=== PATIENT | female | born 1955 | race Caucasian/White ===

== ENCOUNTER 2020-03-16 11:36 | Day surgery (SDC) | payer MEDICARE, OTHER ==
[2020-03-16] MEDS ORDERED: LACTATED RINGERS 1,000 ML IV ONE ×2 (11:45→14:00)
--- NOTE | 2020-03-16 12:17 | ANESTHESIA ---
Pre-Anesthesia VS, & Labs - Diagnosis Hx anal CA w/bowel change in pattern, anal fissure - Procedure colonoscopy w/Biopsy Height 5 ft 3 in Body Mass Index 22.8 - NPO >8 hours - Is Patient ?: No - Lab Results Lab results reviewed: Yes Home Medications and Allergies Home Medications: Ambulatory Orders Atorvastatin Calcium 40 mg PO QPM 03/15/20 Lisinopril [Zestril] 2.5 mg PO DAILY PM 03/15/20 Metformin HCl [Glucophage Xr] 750 mg PO DAILY PM 03/15/20 Atorvastatin Calcium 40 mg PO QPM 03/15/20 Lisinopril [Zestril] 2.5 mg PO DAILY PM 03/15/20 Metformin HCl [Glucophage Xr] 750 mg PO DAILY PM 03/15/20 Allergies/Adverse Reactions: Allergies Allergy/AdvReac Type Severity Reaction Status Date / Time No Known Drug Allergies Allergy Verified 03/15/20 14:29 Anes History & Medical History - Anesthetic History Anesthesia Complications: reports: No previous complications Family history of Anesthesia Complications: Denies Family history of Malignant Hyperthermia: Denies - Medical History Cardiovascular: reports: High cholesterol Endocrine/Autoimmune: reports: Type 2 diabetes - Surgical History General: Cholecystectomy Exam General: Alert, Oriented x3 Dental: WNL Mouth Openin Fingerbreadth Neck Mobility: Normal Mallampati classification: II Thyromental Distance: 4-6 cm Respiratory: Lungs clear, Normal breath sounds Cardiovascular: Regular rate Neurological: Normal speech Mental/Cognitive Status: Alert/Oriented X3, Normal for patient Cognitive Status: Within normal limits Plan Anesthesia Type: MAC Consent for Procedure(s) Verified and Reviewed: Yes Code Status: Attempt Resuscitation ASA classification: 3-Severe systemic disease Is this case an emergency?: No
[2020-03-16] MEDS ORDERED: HYDROmorphone 0.5 MG/0.5 ML SYRINGE IVP PRN (12:20)
[2020-03-16] MEDS ORDERED: ePHEDrine 50 MG/ML VIAL IVP PRN (12:20)
[2020-03-16] MEDS ORDERED: METOCLOPRAMIDE 10 MG/2 ML VIAL IVP PRN (12:20)
[2020-03-16] MEDS ORDERED: ONDANSETRON 4 MG/2 ML VIAL IVP PRN (12:20)
[2020-03-16] MEDS ORDERED: NALOXONE 0.4 MG/ML VIAL IVP PRN (12:20)
[2020-03-16] MEDS ORDERED: MORPHINE 2 MG/ML CARPUJECT IVP PRN (12:20)
[2020-03-16] MEDS ORDERED: ATROPINE ABBOJECT 1 MG/10 ML SYRINGE IVP PRN (12:20)
[2020-03-16] MEDS ORDERED: fentaNYL 100 MCG/2 ML VIAL IVP PRN (12:20)
[2020-03-16] MEDS ORDERED: MIDAZOLAM 2 MG/2 ML VIAL IVP ONE (12:47)
[2020-03-16] MEDS ORDERED: LIDOCAINE-MPF 2% 5 ML VIAL IM ONE (12:47)
[2020-03-16] MEDS ORDERED: PROPOFOL 200 MG/20 ML VIAL IVP ONE (12:47)
[2020-03-16] MEDS ORDERED: KETAMINE 500 MG/10 ML VIAL IVP ONE (12:47)
[2020-03-16] MEDS ORDERED: LACTATED RINGERS 1,000 ML IV SCH (13:00)
[2020-03-16] MEDS ORDERED: BUPIVACAINE 0.25% PF 30 ML VIAL ONE ×3 (13:33→13:36)
[2020-03-16] MEDS ORDERED: BUPIVACAINE 0.25% PF 30 ML VIAL SUBQ ONE (13:45)
--- NOTE | 2020-03-16 14:12 | ANESTHESIA POST OP EVALUATION ---
Anesthesia Post Eval - Post Anesthesia Eval Vitals: Last Vital Signs Temp 36.4 C L 03/16/20 14:00 Pulse 71 03/16/20 14:10 Resp 16 03/16/20 14:10 BP 156/70 H 03/16/20 14:10 Pulse Ox 100 03/16/20 14:10 CV Function Including HR & BP: positive: Stable Pain Control: positive: Satisfactory Nausea & Vomiting: positive: Negative Mental Status: positive: Baseline Respiratory Status: Airway Patent Hydration Status: Satisfactory Anesthesia Complications: positive: None
[2020-03-16 14:32] VITALS: BP 152/78
--- NOTE | 2020-03-16 14:53 | OPERATIVE REPORT ---
Operative Report - General Procedure Date: 03/17/20 Planned Procedure: 1. Intraoperative colonoscopy 2. Exam under anesthesia 3. Random biopsies Pre-Op Diagnosis: Anal cancer, levator spasm, recurrent fissures, change in bowel movements Procedure Performed: 1. Intraoperative colonoscopy 2. Exam under anesthesia 3. Anorectal exam 4. Random biopsies intra-anal 5. Random biopsies, colon 6. Perianal biopsies Post Op Diagnosis: Same, no evidence of recurrence, no ileitis, tortuous colon - Procedure Note Primary Surgeon: Izabella Secondary Surgeon: Corinne Anesthesia Technique: Local, MAC Pathology: 1. Random colon biopsies 2. Anterior anal biopsy, intra-anal 3. Posterior anal biopsy, intra-anal 4. Left lateral intrarenal biopsy 5. Right lateral intrarenal biopsy 6. Left posterior lateral anal biopsy Drain/Tube Type: Other (Packing, anal, Gelfoam and Surgicel) Indications: Preoperative history and physical from Dr. Hannah Sun. In brief 64-year-old female 4 to 5 months status post chemoradiation for anal cancer reportedly stage I found on colonoscopy. Patient was initially noted for area of concern associated with anal fissure. Left lateral anal fissure by report. Recurrent fissures with discomfort and change in bowel movements. Although surveillance imaging without any concerns other than area within the sacrum, patient was recommended for anorectal/colorectal follow-up. Findings: 1. No terminal ileitis 2. Colonic diverticulosis favoring the left side 3. Sigmoid stricture, likely diverticular 4. Exceedingly/grossly tortuous colon 5. No obvious recurrence of anal cancer however random biopsies performed 6. 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
== END 2020-03-16 11:37 | disposition home or self-care (01) ==
LOC: SDS 11:36
PROVIDERS: ATTEND Surgery
PROC: 0DBE8ZX Excision of Large Intestine, Via Natural or Artificial Opening Endoscopic, Diagnostic (ICD-10-PCS; 2020-03-16)
PROC: 0DBN8ZX Excision of Sigmoid Colon, Via Natural or Artificial Opening Endoscopic, Diagnostic (ICD-10-PCS; principal; 2020-03-16 14:45)
DX: R19.4 Change in bowel habit (principal); K62.89 Other specified diseases of anus and rectum; Z85.048 Personal history of other malignant neoplasm of rectum, rectosigmoid junction, and anus; Z92.21 Personal history of antineoplastic chemotherapy; K60.2 Anal fissure, unspecified; K57.30 Diverticulosis of large intestine without perforation or abscess without bleeding; K64.8 Other hemorrhoids; Z92.3 Personal history of irradiation; K62.4 Stenosis of anus and rectum; E11.9 Type 2 diabetes mellitus without complications
CPT/HCPCS: 45380; J7120

== ENCOUNTER 2020-12-19 18:00 | Outpatient (CLI) | payer MEDICARE, OTHER ==
--- NOTE | 2020-12-19 18:35 | XRAY Report ---
PROCEDURE: Abdomen 1 View X-Ray INDICATIONS: CONSTIPATION TECHNIQUE: 1 view of the abdomen were acquired. COMPARISON: None. FINDINGS: Surgical changes and devices: Cholecystectomy clips. Bowel: No pneumoperitoneum. No dilated loops of bowel seen. Somewhat prominent fecal residue. Soft tissues: No masses; visualized solid organ contours appear normal in size. No suspicious abdom inal calcifications. Bones: No suspicious bony abnormalities. IMPRESSION: No dilated loops of bowel seen. Somewhat prominent fecal residue. Reviewed by: Loyd Mccray MD on 12/19/2020 6:33 PM PDT Approved by: Loyd Mccray MD on 12/19/2020 6:33 PM PDT Station ID: [id number]
== END 2020-12-19 23:59 | disposition home or self-care (01) ==
LOC: DI.N 18:00
PROVIDERS: ATTEND Physician Assistant Medical
DX: K59.00 Constipation, unspecified (principal)

== ENCOUNTER 2021-04-12 10:44 | Outpatient (CLI) | payer MEDICARE, OTHER ==
--- NOTE | 2021-04-13 08:41 | Mammography Report ---
BILATERAL DIGITAL SCREENING MAMMOGRAM 3D/2D: 04/12/2021 CLINICAL: Routine screening. Comparison is made to exams dated: 12/01/2019 mammogram, 11/27/2018 mammogram, 09/23/2017 ultrasound, 04/2018 mammogram - [facility], and 09/06/2015 mammogram - [facility]. The re are scattered fibroglandular elements in both breasts. No significant masses, calcifications, or other findings are seen in either breast. There has been no significant interval change. IMPRESSION: NEGATIVE There is no mammographic evidence of malignancy. A 1 year screening mammogram is recommended. This exam was interpreted at Station ID: [id number]. NOTE: For mammograms, a report in lay terms will be sent to the patient. Approximately 15% of breast malignancies will not be visualized mammographically. In the management of a palpable breast mass, a negative mammogram must not discourage biopsy of a clinically suspicious lesion. Electronically Signed By: Srinivasa Serrano M.D. aty/[email or web address]:04/12/2021 12:36:18 ACR BI-RADS Category 1: Negative 3341F PARENCHYMAL PATTERN: (A) - The breast(s) demonstrate(s) scattered fibroglandular densities. BI-RADS CATEGORY: (1) - 1 RECOMMENDATION: (ANNUAL) - Recommend routine annual screening mammography. [id number] 1 year screening LATERALITY: (B)
== END 2021-04-12 10:45 | disposition home or self-care (01) ==
LOC: DI 10:44
DX: Z12.31 Encounter for screening mammogram for malignant neoplasm of breast (principal)

== ENCOUNTER 2022-04-15 10:22 | Outpatient (CLI) | payer MEDICARE, OTHER ==
--- NOTE | 2022-04-16 11:30 | Mammography Report ---
BILATERAL DIGITAL SCREENING MAMMOGRAM 3D/2D: 04/15/2022 CLINICAL: Routine screening. Comparison is made to exams dated: 04/12/2021 mammogram - [facility], 12/01/2019 lori mogram, 11/27/2018 mammogram, 09/23/2017 ultrasound, 08/30/2017 mammogram - [facility], and 09/06/2015 mammogram - [facility]. There are scattered areas of fibroglandular density in both breasts (category b / 25%-50% glandular t issue). No significant masses, calcifications, or other findings are seen in either breast. There has been no significant interval change. IMPRESSION: NEGATIVE There is no mammographic evidence of malignancy. A 1 year screening mammogram is recommended. Based on Tyrer-Cuzick model (a risk assessment model), the patient's lifetime risk is 23.5% and her 1 0 year risk is 13.7%. If a patient has an elevated risk, a more comprehensive evaluation should be co nsidered and/or a referral to a genetic counselor. The [place] [employer], [place] [employer], and NCCN Guidelines advise the consideration of Breast MRI as an adjunct to screening mammo graphy in patients whose "Lifetime risk to develop breast cancer" is 20% or higher. This exam was interpreted at Station ID: [id number]. NOTE: For mammograms, a report in lay terms will be sent to the patient. Approximately 15% of breast malignancies will not be visualized mammographically. In the management of a palpable breast mass, a negative mammogram must not discourage biopsy of a clinically suspicious lesion. Electronically Signed By: Jason Strauss M.D., jr/fauzia:04/15/2022 15:15:53 ACR BI-RADS Category 1: Negative 3341F PARENCHYMAL PATTERN: (A) - The breast(s) demonstrate(s) scattered fibroglandular densities. BI-RADS CATEGORY: (1) - 1 RECOMMENDATION: (ANNUAL) - Recommend routine annual screening mammography. [id number] 1 year screening LATERALITY: (B)
== END 2022-04-15 10:23 | disposition home or self-care (01) ==
LOC: DI.N 10:22
PROVIDERS: ATTEND Physician Assistant
DX: Z12.31 Encounter for screening mammogram for malignant neoplasm of breast (principal)

== ENCOUNTER 2023-01-22 08:26 | Outpatient (CLI) | payer MEDICARE, OTHER ==
[2023-01-22 12:06] LABS: BASOPHILS % (AUTO) 0.2 %; EOSINOPHILS # (AUTO) 0.2 10^3/uL (0.0-0.7); EOSINOPHILS % (AUTO) 4.3 %; HCT - HEMATOCRIT 41.2 % (37.0-47.0); HGB - HEMOGLOBIN 13.1 g/dL (12.0-16.0); LYMPHOCYTES # (AUTO) 1.3 10^3/uL (1.5-3.5); MEAN CORPUSCULAR HEMOGLOBIN 30.4 pg (27.0-31.0); MEAN CORPUSCULAR HGB CONC 31.8 g/dL (32.0-36.0); MEAN CORPUSCULAR VOLUME 95.6 fL (81.0-99.0); MEAN PLATELET VOLUME 9.7 fL (7.9-10.8); MONOCYTES # (AUTO) 0.3 10^3/uL (0.0-1.0); MONOCYTES % (AUTO) 7.2 %; NEUTROPHILS # (AUTO) 2.3 10^3/uL (1.5-6.6); NEUTROPHILS % (AUTO) 56.1 %; PLT - PLATELET COUNT 200 10^3/uL (130-450); RED BLOOD COUNT 4.31 10^6/uL (4.20-5.40); RED CELL DISTRIBUTION WIDTH 12.7 % (12.0-15.0); WHITE BLOOD COUNT 4.2 x10^3/uL (4.8-10.8)
[2023-01-22 12:31] LABS: ESTIMATED AVERAGE GLUCOSE 140 mg/dL (70-100); HEMOGLOBIN A1c% 6.5 % (4.27-6.07); THYROID STIMULATING HORMONE 2.36 uIU/mL (0.34-5.60)
[2023-01-22 12:43] LABS: ALBUMIN 4.1 g/dL (3.2-5.5); ALBUMIN/GLOBULIN RATIO 1.3 (1.0-2.2); ALKALINE PHOSPHATASE 67 IU/L (42-121); ALT ALANINE AMINOTRANSFERASE 23 IU/L (10-60); AST ASPARTATE AMINOTRANSFERASE 22 IU/L (10-42); BILIRUBIN,TOTAL 0.7 mg/dL (0.2-1.0); BUN - BLOOD UREA NITROGEN 14 mg/dL (6-20); CALCIUM 9.5 mg/dL (8.5-10.3); CARBON DIOXIDE - CO2 30 mmol/L (21-32); CHLORIDE 104 mmol/L (101-111); CHOLESTEROL 279 mg/dL; CREATININE 0.7 mg/dL (0.4-1.0); GFR - MDRD 83 (>89); GLUCOSE 131 mg/dL (70-100); HDL CHOLESTEROL 141 mg/dL; LDL CHOLESTEROL,CALCULATED 123 mg/dL; LDL/HDL RATIO 0.9 (<4.4); SODIUM 139 mmol/L (135-145); TOTAL PROTEIN 7.2 g/dL (6.7-8.2); TRIGLYCERIDES 76 mg/dL; VLDL CHOLESTEROL 15 mg/dL
[2023-01-22 20:57] LABS: CREATININE,URINE 46.6 mg/dL; MICROALBUM/CREATININE RATIO,UR 6.4 ug/mg (<30.0); MICROALBUMIN,URINE 0.3 mg/dL (0-300.0)
== END 2023-01-22 08:27 | disposition home or self-care (01) ==
LOC: LAB.N 08:26
PROVIDERS: ATTEND Physician Assistant
DX: I10 Essential (primary) hypertension (principal); E11.9 Type 2 diabetes mellitus without complications
CPT/HCPCS: 36415; 80053; 80061; 82043; 82570; 83036; 83721; 84443; 85025

== ENCOUNTER 2023-03-25 08:39 | Outpatient (CLI) | payer MEDICARE, OTHER ==
--- NOTE | 2023-03-26 09:28 | Mammography Report ---
BILATERAL DIGITAL SCREENING MAMMOGRAM 3D/2D: 03/25/2023 CLINICAL: Routine screening. Comparison is made to exams dated: 04/15/2022 mammogram, 04/12/2021 mammogram - [facility], 12/01/2019 mammogram, 11/27/2018 mammogram, 09/23/2017 ultrasound, and 08/30/2017 mammogram - [facility]. There are scattered areas of fibroglandular density in both breasts (category b / 25%-50% glandular t issue). There is a biopsy clip in the right breast. No significant masses, calcifications, or other findings are seen in either breast. There has been no significant interval change. IMPRESSION: NEGATIVE There is no mammographic evidence of malignancy. A 1 year screening mammogram is recommended. Based on Tyrer-Cuzick model (a risk assessment model), the patient's lifetime risk is 22.5% and her 1 0 year risk is 13.9%. If a patient has an elevated risk, a more comprehensive evaluation should be co nsidered and/or a referral to a genetic counselor. The [place] [employer], [place] [employer], and NCCN Guidelines advise the consideration of Breast MRI as an adjunct to screening mammo graphy in patients whose "Lifetime risk to develop breast cancer" is 20% or higher. This exam was interpreted at Station ID: [id number]. NOTE: For mammograms, a report in lay terms will be sent to the patient. Approximately 15% of breast malignancies will not be visualized mammographically. In the management of a palpable breast mass, a negative mammogram must not discourage biopsy of a clinically suspicious lesion. Electronically Signed By: Jessi delaney/fauzia:03/25/2023 11:50:07 letter sent: No_Letter ACR BI-RADS Category 1: Negative 3341F PARENCHYMAL PATTERN: (A) - The breast(s) demonstrate(s) scattered fibroglandular densities. BI-RADS CATEGORY: (1) - 1 Mammogram [id number] 1 year screening LATERALITY: (B)
== END 2023-03-25 08:40 | disposition home or self-care (01) ==
LOC: DI.N 08:39
DX: Z12.31 Encounter for screening mammogram for malignant neoplasm of breast (principal)

== ENCOUNTER 2023-03-25 16:25 | Emergency (ER) | payer MEDICARE, OTHER ==
[2023-03-25 16:41] VITALS: O2SAT 100
--- NOTE | 2023-03-25 16:49 | ED Physician Documentation ---
PD HPI ABD PAIN - Stated complaint Stated Complaint: LOWER ABD PX - Chief complaint Chief Complaint: Abd Pain - History obtained from History obtained from: Patient - Additional information Additional information: She has a history of anal cancer treated with proton beam radiation and chemotherapy in [place] with complete remission. Had colonoscopy a couple of years ago showing severe diverticulosis with strictures. Had an episode of diverticulitis treated medically in July of this year. For the last week has had constant waxing and waning lower abdominal pain. Sometimes associated with constipation. No nausea. No fevers. Similar to prior diverticulitis. PD PAST MEDICAL HISTORY - Past Medical History Cardiovascular: High cholesterol Endocrine/Autoimmune: Type 2 diabetes - Past Surgical History General: Cholecystectomy - Present Medications Home Medications: Ambulatory Orders Medication Instructions Recorded Confirmed Atorvastatin Calcium 40 mg PO QPM 03/15/20 03/25/23 Metformin HCl [Glucophage Xr] 750 mg PO DAILY PM 03/15/20 03/25/23 Alendronate [Fosamax] 70 mg PO Q7D 03/25/23 03/25/23 Ciprofloxacin HCl [Cipro] 500 mg PO BID #14 tablet 03/25/23 Latanoprost 0.005% Ophth Drops 1 drops OP HS 03/25/23 03/25/23 [Xalatan Ophth Drops] Timolol 0.5% Ophth Drops [Timoptic 1 drops OPTH BID 03/25/23 03/25/23 0.5% Ophth Drops] metroNIDAZOLE [Flagyl] 500 mg PO TID 7 Days #21 tablet 03/25/23 polyethylene glycoL 3350(BULK) 17 gm PO DAILY PRN #1 each 03/25/23 [Miralax] - Allergies Allergies/Adverse Reactions: Allergies Allergy/AdvReac Type Severity Reaction Status Date / Time No Known Drug Allergies Allergy Verified 03/25/23 16:30 PD ED PE NORMAL - Vitals Vital signs reviewed: Yes - General General: Alert and oriented X 3, No acute distress - Abdomen Abdomen: Normal bowel sounds, Soft, Non tender - Neuro Neuro: Alert and oriented X 3, Normal speech - Psych Psych: Normal mood, Normal affect Results - Vitals Vitals: Vital Signs - 24 hr 03/25/23 03/25/23 03/25/23 16:31 16:35 18:35 Temperature 37.1 C 37.1 C 37.0 C Heart Rate 72 72 72 Respiratory 16 16 16 Rate Blood Pressure 153/73 H 153/73 H 140/72 H O2 Saturation 100 100 100 03/25/23 19:11 Temperature 36.8 C Heart Rate 72 Respiratory 16 Rate Blood Pressure 136/74 H O2 Saturation 100 Oxygen O2 Source Room air - Labs Labs: Laboratory Tests 03/25/23 03/25/23 03/25/23 16:50 16:50 17:04 WBC 5.3 RBC 4.15 L Hgb 12.8 Hct 39.2 MCV 94.5 MCH 30.8 MCHC 32.7 RDW 11.9 L Plt Count 245 MPV 8.6 Neut # (Auto) 3.1 Lymph # (Auto) 1.5 [place] # (Auto) 0.4 Eos # (Auto) 0.2 Baso # (Auto) 0.0 Absolute Nucleated RBC 0.00 Nucleated RBC % 0.0 Sodium 137 Potassium 3.7 Chloride 101 Carbon Dioxide 29 Anion Gap 7.0 BUN 11 Creatinine 0.5 L Estimated GFR (MDRD) 122 Glucose 117 H Calcium 9.7 Total Bilirubin 0.3 AST 14 ALT 15 Alkaline Phosphatase 114 Total Protein 7.3 Albumin 4.2 Globulin 3.1 Albumin/Globulin Ratio 1.4 Urine Color YELLOW Urine Clarity CLEAR Urine pH 6.5 Ur Specific [place] 1.015 Urine Protein NEGATIVE Urine Glucose (UA) NEGATIVE Urine Ketones NEGATIVE Urine Occult Blood TRACE-INTA Urine Nitrite NEGATIVE Urine Bilirubin NEGATIVE Urine Urobilinogen 0.2 (NORMAL) Ur Leukocyte Esterase NEGATIVE Ur Microscopic Review NOT INDICATED Urine Culture Comments NOT INDICATED PD Medical Decision Making - ED course ED course: 67-year-old woman with known diverticulosis, and stricturing is in the colon presents with lower abdominal pain constipation despite taking increased fiber and liquids. CT showing obstipation focal colitis and this was discussed with her. Will treat with Cipro and Flagyl and recommended cleaning out with MiraLAX and a clear liquid diet for a day and then a low residue diet for 2 days. She and her are snowbirds and plan to follow-up with their GI with whom she is already established in [place]. She had a similar episode to this in July and states she had a colonoscopy then with only findings of adenomas, but the prior colonoscopy done a few years ago here did show the strictures and severe diverticulosis. Departure - Departure Disposition: 01 Home, Self Care Clinical Impression: Colitis Condition: Good Record reviewed to determine appropriate education?: Yes Instructions: Diet Low Residue, ED Diet Clear Liquid Prescriptions: Ciprofloxacin HCl [Cipro] 500 mg PO BID #14 tablet metroNIDAZOLE [Flagyl] 500 mg PO TID 7 Days #21 tablet polyethylene glycoL 3350(BULK) [Miralax] 17 gm PO DAILY PRN #1 each PRN Reason: Constipation Comments: As discussed, you were seen today for colitis associated with obstipation (constipation) and a focal area which corresponds to previously noted strictures on your colonoscopy. For the next 24 hours a clear liquid diet, and then for 48 hours after that, a low residue diet, see the handouts in this packet for directions. Also apple picking supervisor MiraLAX which is available [id number] and use 1 capful up to 4 times a day until you are cleaned out from a stool perspective. [facility] [place]. You should follow-up with your GI doctor on return to [place] with the results I gave you tonight. With a specific query on whether the strictures need to be dilated or surgically addressed to prevent further attacks of this. Forms: PCP List Discharge Date/Time: 03/25/23 19:11
[2023-03-25 16:54] LABS: BASOPHILS % (AUTO) 0.2 %; EOSINOPHILS # (AUTO) 0.2 10^3/uL (0.0-0.7); EOSINOPHILS % (AUTO) 3.6 %; HCT - HEMATOCRIT 39.2 % (37.0-47.0); HGB - HEMOGLOBIN 12.8 g/dL (12.0-16.0); LYMPHOCYTES # (AUTO) 1.5 10^3/uL (1.5-3.5); LYMPHOCYTES % (AUTO) 28.4 %; MEAN CORPUSCULAR HEMOGLOBIN 30.8 pg (27.0-31.0); MEAN CORPUSCULAR HGB CONC 32.7 g/dL (32.0-36.0); MEAN CORPUSCULAR VOLUME 94.5 fL (81.0-99.0); MEAN PLATELET VOLUME 8.6 fL (7.9-10.8); MONOCYTES # (AUTO) 0.4 10^3/uL (0.0-1.0); MONOCYTES % (AUTO) 8.2 %; NEUTROPHILS # (AUTO) 3.1 10^3/uL (1.5-6.6); NEUTROPHILS % (AUTO) 59.4 %; PLT - PLATELET COUNT 245 10^3/uL (130-450); RED BLOOD COUNT 4.15 10^6/uL (4.20-5.40); RED CELL DISTRIBUTION WIDTH 11.9 % (12.0-15.0); WHITE BLOOD COUNT 5.3 x10^3/uL (4.8-10.8)
[2023-03-25 17:10] LABS: BILIRUBIN,URINE NEGATIVE (NEGATIVE); GLUCOSE, URINE (UA) NEGATIVE (NEGATIVE); KETONES,URINE (UA) NEGATIVE (NEGATIVE); LEUKOCYTE ESTERASE, URINE NEGATIVE (NEGATIVE); NITRITE,URINE NEGATIVE (NEGATIVE); OCCULT BLOOD,URINE TRACE-INTA (NEGATIVE); PH,URINE 6.5 PH (5.0-7.5); PROTEIN,URINE NEGATIVE (NEGATIVE); UROBILINOGEN,URINE 0.2 (NORMAL) E.U./dL (NORMAL)
[2023-03-25 17:14] LABS: CLARITY,URINE CLEAR (CLEAR)
[2023-03-25 17:17] LABS: ALBUMIN 4.2 g/dL (3.2-5.5); ALBUMIN/GLOBULIN RATIO 1.4 (1.0-2.2); BILIRUBIN,TOTAL 0.3 mg/dL (0.2-1.0); CALCIUM 9.7 mg/dL (8.5-10.3); CREATININE 0.5 mg/dL (0.6-1.3); POTASSIUM 3.7 mmol/L (3.5-4.5); TOTAL PROTEIN 7.3 g/dL (6.4-8.9)
--- NOTE | 2023-03-25 18:40 | CT Report ---
PROCEDURE: ABDOMEN/PELVIS W INDICATIONS: iv only low abd pain CONTRAST: 100mL OMni 300 TECHNIQUE: After the administration of intravenous contrast, 5 mm thick sections acquired from the diaphragms to the symphysis. 5 mm thick coronal and sagittal reformats were acquired. For radiation dose reducti on, the following was used: automated exposure control, adjustment of mA and/or kV according to shweta ent size. COMPARISON: None FINDINGS: Image quality: Excellent. Lung bases and heart: Unremarkable. Liver: No solid mass. Gallbladder and biliary tree: Gallbladder surgically absent. Biliary tree is appropriate post cholecy stectomy, mildly dilated. Spleen: No splenomegaly. Pancreas: No pancreatic ductal dilation. Adrenals: No adrenal nodule. Kidneys and ureters: No hydronephrosis. No renal cystic lesion which requires follow up. No solid mas s. Bowel and peritoneum: There is increased quantity of high density stool throughout the colon. Moderat e sigmoid diverticulosis. There is focal mucosal inflammation and wall thickening involving the short segment of distal sigmoid and proximal rectum containing a focal stool ball. No small bowel obstruct ion. Normal appendix. Decompressed stomach. Lymph nodes: No central or retroperitoneal adenopathy. Vessels: No infrarenal aortic aneurysm. PELVIS Reproductive organs: Uterus is not well assessed by CT but appears present. Bladder: No abnormal wall thickening, accounting for underdistension. Pelvic lymph nodes: No pelvic adenopathy by size criteria. Bones: No aggressive osseous abnormality. Other: No significant ventral or inguinal hernia. IMPRESSION: Findings of obstipation and focal colitis in distal sigmoid. An underlying obstruction may be present and is not excluded. Colonoscopy is recommended. Sigmoid diverticulosis without acute diverticulitis. Postcholecystectomy. Reviewed by: Jessi Whelan MD on 03/25/2023 6:39 PM PDT Approved by: Jessi Whelan MD on 03/25/2023 6:39 PM PDT Station ID: [id number]
[2023-03-25] MEDS ORDERED: metroNIDAZOLE 250 MG TABLET PO STA (18:54)
[2023-03-25] MEDS ORDERED: CIPROFLOXACIN 250 MG TABLET PO STA (18:54)
[2023-03-25 19:16] VITALS: BP 136/74
[2023-03-26] MEDS ORDERED: iohexoL-300 100 ML VIAL IVP ONE (04:49)
== END 2023-03-25 19:11 | disposition home or self-care (01) ==
LOC: ED 16:25
DX: K52.9 Noninfective gastroenteritis and colitis, unspecified (principal); K59.00 Constipation, unspecified; K57.90 Diverticulosis of intestine, part unspecified, without perforation or abscess without bleeding; K56.699 Other intestinal obstruction unspecified as to partial versus complete obstruction
CPT/HCPCS: 36415; 74177; 80053; 81003; 85025; 99283; 99284; A9270; Q9967; 81001; 87086